=== PATIENT | female | born 1940 | race Caucasian/White ===

== ENCOUNTER 2018-02-23 07:50 | Inpatient (IN) ==
[~2018-02-23 07:50] MED LIST: ACETAMINOPHEN 500 MG TABLET PO ONE; DEXAMETHASONE 4 MG/ML INJECTION IVP ONE; FAMOTIDINE PB 20 MG/50 ML BAG IV ONE; LIDOCAINE 1% (10mg/ml) 2mL INJ PF SDV ID ONE; MELOXICAM 15 MG TABLET PO ONE; METOCLOPRAMIDE 10mg/2ml INJECTION IVP ONE; ONDANSETRON 4 MG/2 ML INJECTION IVP ONE; TRANEXAMIC ACID 1,000 MG in NS 100 ML IV ONE
[2018-02-23] MEDS ORDERED: EPINEPHrine PF 0.25 MG, BUPIVACAINE 0.25% PF 30 ML, KETOROLAC INJ 60 MG in NS 30 ML OPSITE ONE (08:00)
[2018-02-23 08:20] VITALS: BMI 27.2
[2018-02-23] MEDS ORDERED: CEFAZOLIN 1 G INJECTION IVP ONE ×2 (08:45→10:00)
[2018-02-23] MEDS: LR 1,000 ML IV SCH ×2 (08:45→11:52)
[2018-02-23] MEDS: NOZIN NASAL SWAB NAS SCH ×5 (09:05→22:05)
--- NOTE | 2018-02-23 09:39 | Anesthesia Preoperative Report ---
Anesthesia Preoperative Record - Date and Time Date: 02/23/18 Preoperative Diagnosis: Primary OA Proposed Procedure: Left Total Hip Arthroplasty NPO Since Date: 02/23/18 NPO Since Time: 00:00 Allergies/Adverse Reactions: Allergies Allergy/AdvReac Type Severity Reaction Status Date / Time fexofenadine AdvReac Unknown Verified 02/15/18 14:00 Sulfa (Sulfonamide AdvReac Unknown Gastrointestinal Verified 02/23/18 08:31 Antibiotics) Upset terbinafine AdvReac Unknown Diarrhea Verified 02/15/18 14:00 - Vital Signs Vital Signs: Temperature 97.9 F 02/23/18 08:18 Pulse Rate 68 02/23/18 08:56 Respiratory Rate 15 02/23/18 08:18 Blood Pressure 144/82 H 02/23/18 08:18 Pulse Oximetry 96 02/23/18 08:18 Height and Weight: Height 1.61 m Weight 70.8 kg Body Mass Index 27.2 - Medications Inpatient Medications: Current Medications Epinephrine HCl 0.25 mg/Bupivacaine HCl 30 ml/Ketorolac Tromethamine 60 mg/ Sodium Chloride 62.25 mls @ 1 mls/hr OPSITE INTRAOP ONE; Protocol Stop: 02/25/18 22:14 Lactated Ringer's (Lactated Ringers) 1,000 mls @ 50 mls/hr IV .Q20H [facility] Last Admin: 02/23/18 08:45 Dose: 50 mls/hr Isopropyl Alcohol (Nozin Nasal Swab) 1 each JOSEFINA Q1M TAMIKA Stop: 02/23/18 10:03 Last Admin: 02/23/18 09:14 Dose: 1 each Sodium Chloride (Iv Flush) 10 - 80 ml IV PRN PRN PRN Reason: Flushing Home Medications: Home Medications Medication Instructions Recorded Confirmed Type Ambien (zolpidem) 5 mg tablet 5 mg PO HS 02/08/18 02/23/18 History Celexa (citalopram) 20 mg tablet 20 mg PO DAILY 02/08/18 02/23/18 History Prilosec (Omeprazole) 20 mg 20 mg PO DAILY 02/08/18 02/23/18 History capsule,delayed release Voltaren (Diclofenac sodium) 50 mg 50 mg PO BID 02/08/18 02/23/18 History tablet,delayed release Zyrtec (Cetirizine) 10 mg capsule 10 mg PO PRN 02/08/18 02/23/18 History calcium carbonate 500 mg calcium 500 mg PO DAILY tab 02/08/18 02/23/18 History (1,250 mg) chewable tablet cyclobenzaprine 5 mg tablet 5 mg PO DAILY 02/08/18 02/23/18 History hydrochlorothiazide 25 mg tablet 25 mg PO DAILY 02/08/18 02/23/18 History levothyroxine (Tirosint) 100 mcg 100 mcg PO .qod cap 02/08/18 02/23/18 History capsule Cholecalciferol (Vitamin D3) 400 unit PO DAILY 02/09/18 02/23/18 History [Vitamin D3] Cranberry 500 mg PO DAILY 02/09/18 02/23/18 History Fish Oil/Dha/Epa [Fish Oil 1,200 1 each PO DAILY 02/09/18 02/23/18 History mg Fish Oil] Vitamin B Complex [Super B-50 1 each PO DAILY 02/09/18 02/23/18 History Complex] Is Patient on Beta Guillermo?: No - Medical History Respiratory: Reports: Bronchitis (occasional) Cardiovascular: Reports: Hypertension, High Cholesterol Gastrointestional: Reports: Gastroesophageal Reflux Disease Neuro/Musculoskeletal: Reports: Depression, Other (fibromyalgia) Renal/Endocrine: Reports: Thyroid Disease (hypothyroid) Other History: Reports: Anesthesia Reactions (nausea; "SLOW TO WAKE UP") - Surgical History HEENT Surgeries: Reports: Eye Surgery (BILAT CATARACTS WITH LENS IMPLANT), Tonsillectomy GI Surgery/Treatments: Reports: Cholecystectomy Surgery/Treatment: REPORT: Other (bladder repair) Musculoskeletal Surgery/Tx: Reports: Knee Arthroscopy (LEFT) Reproductive Surgery/Treatment: Reports: Hysterectomy Anesthesia Reactions: Nausea and Vomiting Hx Family Anesthesia Reaction: No History of Motion Sickness: No - Social History Smoking Status: Never smoker Hx Chewing Tobacco Use: No Second Hand Exposure: No Substance Use Type: does not use Alcohol Intake Frequency: does not drink - Pertinent Findings Laboratory: CBC and BMP 02/23/18 08:33 BMP 02/23/18 08:33 Sodium 142 Potassium 4.0 Chloride 103 Carbon Dioxide 29 BUN 15.0 Creatinine 0.7 Glucose 90 Calcium 9.5 EKG: Sinus Rhythm - Physical Exam Respiratory Exam: Present: lungs clear Cardiovascular Exam: Present: regular rate and rhythm - Airway Assessment Mallampati Score: II TMD: 3 Fingerbreadths Neck Extension: fair Overall Assessment: may be difficult intubation - ASA ASA Score: 3 - Plan Anesthesia: Neuroaxial Regional/Trunk Block: Spinal - Discussion Discussion: Discussed risks/options/alternatives of anesthesia and questions answered. Patient consents. Nursing pain assessment noted. Present for Discussion: spouse Attestation Statement: Prior to the delivery of any anesthetic medication, I examined the patient, developed the plan, obtained the patient's consent and discussed the risk and benefits of the procedure with the patient/guardian. - Additional Information Seen by Anesthesia: Yes
[2018-02-23] MEDS ORDERED: VANCOMYCIN 1,000 MG INJECTION ONE (09:49)
[2018-02-23] MEDS ORDERED: VANCOMYCIN 1,000 MG INJECTION IAR ONE (09:58)
[2018-02-23] MEDS ORDERED: SALINE FLUSH 10ml SYRINGE IV PRN (09:58)
[2018-02-23] MEDS ORDERED: BUPIVACAINE 0.75%/DEXTROSE 8.5% SPINAL 2 ML AMPULE IJ ONE (10:27)
[2018-02-23] MEDS ORDERED: LIDOCAINE 2% (100mg/5mL) 5ml PF SDV ONE (10:27)
[2018-02-23] MEDS ORDERED: MIDAZOLAM 2mg/2ml INJECTION ONE (10:27)
[2018-02-23] MEDS ORDERED: PROPOFOL 20 ML ONE (12:04)
--- NOTE | 2018-02-23 12:18 | Operative Note ---
- Procedure Preoperative Diagnosis: Left hip primary degenerative joint disease Postoperative Diagnosis: Same as preoperative diagnosis. Surgeon: Lilian Sepulveda MD Chief [facility] Division: Sandy Berrios Complications: None. Anesthesia: Spinal. Estimated Blood Loss: See Anesthesia Record. Fluids: Please see Anesthesia Record. Description of Procedure: Mrs. Tejeda and her left hip were identified and marked in the preoperative holding area. She was brought back to the operating suite and spinal anesthetic was administered. She was then placed in a lateral decubitus position with her left hip up. The left lower extremity was prepped and draped in my normal sterile fashion. Timeout was performed. The [employer] robotic arm was used to assist with the surgery. A pelvic array was placed into the iliac crest through three small incisions. A direct superior approach was utilized. An approximately 15 cm incision was made in the skin and dissection carried down to the muscle fascia which was then split in line with skin incision. A Charnley retractor was placed. The short external rotators were identified and tagged and detached. A capsulotomy was performed and the hip dislocated. A femoral neck osteotomy was performed at the pre-templated level measuring down from the femoral head 55mm. The head was removed and acetabulum exposed. Labrum was removed. The acetabulum was then registered with the robot. The robotic arm was then used to ream with a 49 reamer. The robot then was again used to place a 50 Trident cup in 40 of tilt and 25 of anteversion. A liner was then placed. The proximal femur was exposed and prepared with a cookie cutter followed by reaming and broaching to a size 5. We trialed with a -2.5 head and 132 neck. She felt good and was stable but had a greater than normal shuck so we retrial with 127 neck and standard head. Again she was stable throughout motion with good combined anteversion. She felt even at the knees and the robot showed 5 mm long compared to preop her shuck was better and she did not fill to tight in extension. After thorough irrigation a final Accolade 2 size 5 stem with 127 neck was placed. Leg length and offset were checked with the robot and were good. A final standard head was placed and the hip reduced. Betadine solution was used to irrigate throughout the case. It was followed by normal saline irrigation. Joint cocktail was injected throughout soft tissue. The capsulotomy was repaired with Ethibond. Short external rotators were also repaired with Ethibond. 1 g of vancomycin powder was placed into the wound. The muscle fascia was then repaired with #1 Vicryl. I then left my refinery operator assistant to close the subcutaneous tissue with 2-0 Vicryl followed by running 4-0 Monocryl skin followed by Dermabond and a sterile dressing. The patient with any placed back into supine position and taken to recovery room in the care of anesthesia.
[2018-02-23] MEDS ORDERED: DiphenhydrAMINE 50 MG/ML INJECTION IVP PRN (12:41)
[2018-02-23] MEDS ORDERED: ONDANSETRON 4 MG/2 ML INJECTION IVP PRN (12:41)
[2018-02-23] MEDS ORDERED: DiphenhydrAMINE 25 MG CAPSULE PO PRN (12:41)
[2018-02-23] MEDS ORDERED: NOZIN NASAL SWAB NAS ONE (12:41)
[2018-02-23] MEDS ORDERED: CETIRIZINE 10 MG TABLET PO PRN (12:45)
--- NOTE | 2018-02-23 13:14 | Anesthesia Postoperative Note ---
- Date and Time Date: 02/23/18 Time: 13:13 - Status Patient Participated in Evaluation: Patient Participated in Person Vital Signs: Temperature 97.9 F 02/23/18 08:18 Pulse Rate 68 02/23/18 08:56 Respiratory Rate 15 02/23/18 08:18 Blood Pressure 144/82 H 02/23/18 08:18 Pulse Oximetry 96 02/23/18 08:18 Respiratory Function: Airway Patent Cardiovascular Function: Regular Pulse EKG: Sinus Rhythm Mental Status: Alert and Oriented Pain Intensity: 0 Hydration: IV Infusing Nausea/Vomiting: None Complications During Recover: None Apparent - Follow-Up Instructions Instructions: Per Surgeon
[2018-02-23] MEDS: NS 1,000 ML IV SCH (13:28)
--- NOTE | 2018-02-23 13:49 | XRay Report ---
Indication: postoperative image PROCEDURE: XR pelvis w/ 1 view LT hip: Encounter: Initial Comparison: None Findings: Postoperative changes of left total hip replacement are seen. There is expected postoperative subcutaneous gas. No evidence of hardware failure or acute fracture. No retained radiopaque surgical instruments or sponges seen. Moderate degenerative change in the right hip with osteophytes on the femoral head. Impression: New left total hip prosthesis without evidence of immediate complication. .
[2018-02-23] MEDS: ACETAMINOPHEN 325 MG TABLET PO SCH ×3 (13:58→21:19)
[2018-02-23] MEDS: DEXAMETHASONE 20 MG/5 ML INJECTION IVP ONE ×2 (13:59→14:18)
[2018-02-23] MEDS ORDERED: FALL RISK - PHARMACY CONSULT MC ONE (14:06)
[2018-02-23] MEDS: Oxycodone *IR* 5 MG TABLET PO PRN ×2 (16:24→21:18)
[2018-02-23] MEDS ORDERED: DEXAMETHASONE 20 MG/5 ML INJECTION IVP ONE (17:30)
[2018-02-23] MEDS: DICLOFENAC SODIUM DR 25 MG TABLET PO SCH (17:35)
[2018-02-23] MEDS: CEFAZOLIN 1 G in NS 100 ML IV SCH (18:27)
[2018-02-23] MEDS ORDERED: ZOLPIDEM 5 MG TABLET PO SCH (21:00)
[2018-02-23] MEDS ORDERED: SENNOSIDES 8.6 MG TABLET PO SCH (21:00)
[2018-02-23] MEDS: DOCUSATE SODIUM 100 MG CAPSULE PO SCH (21:19)
[2018-02-23] MEDS: ASPIRIN *EC* 81 MG TABLET PO SCH (21:19)
[2018-02-24] MEDS: NS 1,000 ML IV SCH (02:11)
[2018-02-24] MEDS: CEFAZOLIN 1 G in NS 100 ML IV SCH (04:17)
[2018-02-24] MEDS ORDERED: LEVOTHYROXINE 88 MCG TABLET PO SCH (06:00)
[2018-02-24] MEDS: Oxycodone *IR* 5 MG TABLET PO PRN ×2 (06:16→12:41)
[2018-02-24] MEDS: NOZIN NASAL SWAB NAS SCH ×2 (06:16→13:09)
[2018-02-24] MEDS ORDERED: OMEPRAZOLE 20 MG CAPSULE PO SCH (06:30)
[2018-02-24] MEDS: ACETAMINOPHEN 325 MG TABLET PO SCH ×2 (08:14→12:40)
[2018-02-24] MEDS: ASPIRIN *EC* 81 MG TABLET PO SCH (08:14)
[2018-02-24] MEDS: DOCUSATE SODIUM 100 MG CAPSULE PO SCH (08:15)
[2018-02-24] MEDS: DICLOFENAC SODIUM DR 25 MG TABLET PO SCH (08:16)
[2018-02-24 08:27] VITALS: O2SAT 97
[2018-02-24] MEDS ORDERED: CYCLOBENZAPRINE 5 MG TABLET PO SCH (09:00)
[2018-02-24] MEDS ORDERED: POLYETHYL GLYCOL 3350 17gm PACKET PO SCH (09:00)
[2018-02-24] MEDS ORDERED: CITALOPRAM 20 MG TABLET PO SCH (09:00)
--- NOTE | 2018-02-24 09:33 | Orthopedic Progress Note ---
Date: Date: 02/24/18 Time: 930 Subjective/Severity of Illness: Mary is lying in bed this morning during rounds. She is post op day 1 of Left JAS. She reports her left hip pain has been well controlled. Has been up ambulating. Was unable to sleep well last night, but mostly due to noise. Denies any CP, SOA, nausea. Tolerating PO well. Hgb 11.5 Orthopedic Exam Vital signs: Temperature 97.5 F 02/24/18 07:00 Pulse Rate 79 02/24/18 07:00 Respiratory Rate 16 02/24/18 08:12 Blood Pressure 136/67 02/24/18 07:00 Pulse Oximetry 97 02/24/18 07:00 - Constitutional General Appearance: Present: alert, orientated x3, cooperative, no acute distress - Respiratory Exam Present: CTA bilaterally, non-labored - Cardiovascular Exam Present: Regular Rate/Rhythm, pedal pulses intact - Abdominal Exam Present: soft. Absent: tenderness, distended - Extremities Exam Present: pulses intact - Dressing Dressing: dry, intact, no drainage - Integumentary Exam Present: pink, warm, dry - Neurological Exam Present: intact to light touch, no deficits - Psychiatric Exam Present: alert, oriented - Labs Result Diagrams: 02/24/18 03:50 02/24/18 03:50 Abnormal lab results 02/24/18 02/24/18 Range/Units 03:50 03:50 Hgb 11.5 L (12-16) GM/DL Hct 34.9 L (36-46) % Creatinine 0.6 L (0.7-1.2) mg/dL Glucose 140 H (65-110) MG/DL H & H 02/24/18 Range/Units 03:50 Hgb 11.5 L (12-16) GM/DL Hct 34.9 L (36-46) % Orthopedic Assessment and Plan (1) Primary osteoarthritis of left hip Status: Acute Assessment and Plan: Current anti-coagulation protocol with ASA 81mg BID for VTE prophylaxis. SCD's for added protection. PT/OT services to improve independent function. Discharge Planning per Case Management. - Anticoagulation Therapy Anticoagulation: ASA 81 mg PO BID x6 weeks - Additional Diagnoses Anemia: no intervention required, patient was asymptomatic, labs monitored Hospital Course Summary Disclaimer: The visit summary below is not to be considered part of the above Progress Note.
--- NOTE | 2018-02-24 09:37 | Discharge Summary ---
Letter to PCP Cover Letter: Mary Tejeda underwent an elective total joint arthroplasty by Dr. Sepulveda. Aspirin therapy was initiated for DVT prophylaxis. Aspirin 81mg should be given BID for six weeks postoperatively. Details for their hospitalization can be found in the discharge summary attached. The patient is scheduled to see you one week after surgery for a post-operative check. I hope you find the discharge summary informative and helpful as you resume care of your patient after their surgery. If our office can be of any assistance, please feel free to contact us any time. Orthopedic Discharge Info Date of admission: 02/23/18 07:50 Anticipated date of discharge: 02/24/18 Primary care physician: Courtney Beverly MD Attending Physician: Saeid Sepulveda MD Consults: 02/23/18 07:58 Consult to Anesthesiology [CONS] Routine Reason For Exam: Preoperative Assessment 02/23/18 12:41 Case Management Consult [CONS] Routine Reason For Exam: Discharge Planning DME-Walker [CONS] Routine Height: 5 ft 3.5 in Weight: 70.8 kg Total Joint Outpatient Therapy [CONS] Routine Comment: Remove dressing in 2 weeks - Discharge Diagnosis (1) Primary osteoarthritis of left hip Status: Acute - Laboratory Result Diagrams: 02/24/18 03:50 02/24/18 03:50 Laboratory: Abnormal lab results 02/24/18 02/24/18 Range/Units 03:50 03:50 Hgb 11.5 L (12-16) GM/DL Hct 34.9 L (36-46) % Creatinine 0.6 L (0.7-1.2) mg/dL Glucose 140 H (65-110) MG/DL H & H 02/24/18 Range/Units 03:50 Hgb 11.5 L (12-16) GM/DL Hct 34.9 L (36-46) % Orthopedic Discharge HPI - HPI Comments This patient was admitted for elective surgical tx of end stage degenerative joint disease that failed to respond to conservative treatment. Further details of this is found in the admission H&P. Orthopedic Hospital Course Hospital course: 02/24/18 09:34 After appropriate preoperative clearance and signing of operative consent, the patient was given IV antibiotics, according to orthopedic protocol. The patient was taken to the operating room and underwent elective joint arthroplasty. Following surgery, antibiotics were discontinued less than 24 hours according to joint protocol. Appropriate anticoagulants were initiated with ASA 81mg BIG [id number] and SCDs added for DVT prevention. The dressing was clean, dry, and intact. Pain control was obtained via multimodal approach. Bowel motivation addressed with scheduled and PRN medications. Early mobilization was initiated through PT services. Discharge arrangements made by a collaborative effort between the patient and Case Management. Post op anemia- Hgb 11.5, patient asymptomatic. No intervention required. Creatinine, GFR and electrolytes remained stable and within normal limits during hospital course. Patient scheduled with PCP for 1 week post op medical check. Follow-up is scheduled in 2-3 weeks. Discharge instructions given by orthopedic providers and nursing staff at discharge. Discharge condition was good. Care extended to > 2 midnight stays?: No Discharge Plan - Med Rec/Dispo Referrals/Follow Up: Courtney Beverly MD [Primary Care Provider] - 03/04/18 10:00 am Sandy Berrios APRN [Advanced Practice Nurse] - 03/17/18 1:30 pm [facility] Instructions: [facility] Postop Instructions Prescriptions: New Aspirin *EC* [Ecotrin] 81 mg PO BID tab Docusate Sodium [Colace] 100 mg PO BID cap Milk of Magnesia [Mom] 30 ml PO DAILY udc PEG 3350 17gm PACKET [Miralax] 17 gm PO DAILY packet Oxycodone *IR* [Roxicodone *Ir*] 5 - 10 mg PO Q3H PRN #50 tab PRN Reason: Breakthrough Pain Acetaminophen [Tylenol] 650 mg PO QID tab Continue Vitamin B Complex [Super B-50 Complex] 1 each PO DAILY Cranberry 500 mg PO DAILY Fish Oil/Dha/Epa [Fish Oil 1,200 mg Fish Oil] 1 each PO DAILY Cholecalciferol (Vitamin D3) [Vitamin D3] 400 unit PO DAILY levothyroxine (Tirosint) 100 mcg capsule 100 mcg PO .qod cap Prilosec (Omeprazole) 20 mg capsule,delayed release 20 mg PO DAILY hydrochlorothiazide 25 mg tablet 25 mg PO DAILY Celexa (citalopram) 20 mg tablet 20 mg PO DAILY calcium carbonate 500 mg calcium (1,250 mg) chewable tablet 500 mg PO DAILY tab Zyrtec (Cetirizine) 10 mg capsule 10 mg PO PRN Ambien (zolpidem) 5 mg tablet 5 mg PO HS cyclobenzaprine 5 mg tablet 5 mg PO DAILY Voltaren (Diclofenac sodium) 50 mg tablet,delayed release 50 mg PO BID - Disposition 01 Discharged Home, Self-Care - Dismissal Complete Discharge Instructions are:: Complete
[2018-02-24] MEDS ORDERED: SENNOSIDES 8.6 MG TABLET PO PRN (12:41)
[2018-02-24 15:43] VITALS: BP 132/69; PULSE 71; RESP 18; TEMP 98
[2018-02-25] MEDS ORDERED: LEVOTHYROXINE 100 MCG TABLET PO SCH (06:00)
[2018-02-25] MEDS ORDERED: BISACODYL 10 MG SUPPOSITORY RECTALLY SCH (20:00)
== END 2018-02-24 15:55 | disposition home health service (06) | DRG 470 ==
LOC: NMC.PERIOP 07:50 → SRG 13:17
PROVIDERS: ADMIT Orthopaedic Surgery; ATTEND Orthopaedic Surgery